=== PATIENT | female | born 1955 | race Caucasian/White ===

== ENCOUNTER 2019-06-07 08:08 | Day surgery (SDC) | payer MEDICARE, BC ==
[~2019-06-07 08:08] MED LIST: Midazolam 1 MG/ML 2 ML SDV ONE; Propofol 200 MG/20 ML SDV ONE; fentaNYL 100 MCG/2 ML SDV ONE
[2019-06-07] MEDS ORDERED: Lactated Ringers 1,000 ML IV SCH (08:45)
[2019-06-07] MEDS ORDERED: Propofol 200 MG/20 ML SDV ONE (09:28)
--- NOTE | 2019-06-07 10:59 | OR ---
DATE OF PROCEDURE: 06/07/2019 SURGEON: John Tucker MD PREOPERATIVE DIAGNOSIS: Strong family history of colon cancer, father. POSTOPERATIVE DIAGNOSIS: Three small colon polyps, strong family history of colon cancer, father. PROCEDURE: Colonoscopy to the cecum with biopsy resection of three small colon polyps, sent to the laboratory as two specimens. ANESTHESIA: IV anesthesia with monitored anesthesia care. INDICATION: This 64-year-old white female is referred for a colonoscopy because of a strong family history of colon cancer, her father had colon cancer. She has been having colonoscopies every 5 years for many years. I counseled her for the procedure, including risks and alternatives, and she gave her informed consent to proceed. DESCRIPTION OF PROCEDURE: The patient was placed in the left lateral decubitus position. IV anesthesia was administered by the Anesthesia Service. Time-out was held. A rectal exam was performed, which was unremarkable. The flexible video Olympus colonoscope was introduced through her anus, up her rectum, out her colon all the way to the cecum. En route, in the transverse colon, we saw two polyps adjacent to each other. These were removed with the biopsy forceps and sent to the laboratory as one specimen. Once the cecum was reached, the scope was slowly withdrawn, examining the mucosa throughout. No other mucosal abnormalities were noted until I reached 30 cm from the anal verge. Here, we saw a small polyp, which was removed with the biopsy forceps. The scope was brought back into the rectum, where it was retroflexed. The distal rectum appeared unremarkable. The scope was straightened and removed. She tolerated the procedure well. John Tucker MD /[id number]
== END 2019-06-07 10:55 | disposition home or self-care (01) ==
LOC: JP.SDS 08:08
PROVIDERS: ATTEND Surgery
DX: Z12.11 Encounter for screening for malignant neoplasm of colon (principal); D12.3 Benign neoplasm of transverse colon; K63.5 Polyp of colon; Z80.0 Family history of malignant neoplasm of digestive organs; Z88.5 Allergy status to narcotic agent
CPT/HCPCS: 45380; J2250; J2704; J3010; J7120; 88305

== ENCOUNTER 2024-11-19 06:27 | Day surgery (SDC) | payer MEDICARE, BC ==
[2024-11-19] MEDS ORDERED: Midazolam 1 MG/ML 2 ML SDV ONE (07:09)
[2024-11-19] MEDS ORDERED: Propofol 200 MG/20 ML SDV ONE ×4 (07:09→08:36)
[2024-11-19] MEDS ORDERED: fentaNYL 100 MCG/2 ML SDV ONE (07:09)
[2024-11-19] MEDS: Lactated Ringers 1,000 ML IV SCH (07:32)
[2024-11-19] MEDS ORDERED: Lactated Ringers 1,000 ML ONE (08:47)
== END 2024-11-19 11:10 | disposition home or self-care (01) ==
LOC: JP.SDS 06:27
PROVIDERS: ATTEND Surgery
DX: Z12.11 Encounter for screening for malignant neoplasm of colon (principal); K21.9 Gastro-esophageal reflux disease without esophagitis; K29.50 Unspecified chronic gastritis without bleeding
CPT/HCPCS: 00813; 43239; 87081; 88305; 91035; G0121; J2250; J2704; J3010; J7120

== ENCOUNTER 2024-12-12 07:38 | Day surgery (SDC) | payer MEDICARE, BC ==
[~2024-12-12 07:38] MED LIST changes: +Dexamethasone 4 MG/ML SDV ONE; +Glycopyrrolate 0.2 MG/ML 5 ML MDV ONE; -Midazolam 1 MG/ML 2 ML SDV ONE; +Neostigmine Methylsulfate 10 MG/10 ML MDV ONE; +Ondansetron 4 MG/2 ML SDV ONE; +Rocuronium 50 MG/5 ML Vial ONE; +Succinylcholine 200 MG/10 ML MDV ONE; -fentaNYL 100 MCG/2 ML SDV ONE; +fentaNYL 250 MCG/5 ML SDV ONE
[2024-12-12 08:04] LABS: HEMATOCRIT 42.8 % (34.3-46.0); HEMOGLOBIN 13.9 g/dL (11.2-15.5); MEAN CORPUSCULAR HEMOGLOBIN 30.4 pg (31.6-35.5); MEAN CORPUSCULAR HGB CONC 32.5 g/dL (31.6-35.5); MEAN CORPUSCULAR VOLUME 93.7 fL (81.4-99.0); RED BLOOD CELL COUNT 4.57 M/uL (3.77-5.24)
[2024-12-12 08:24] LABS: A/G RATIO 1.2 (1.2-2.2); ALANINE AMINOTRANSFERASE,ALT 43 U/L (12-78); ALBUMIN 4.3 g/dL (3.4-5.0); ALKALINE PHOSPHATASE 78 U/L (46-116); ANION GAP 8.2 mmol/L (5.0-14.0); ASPARTATE AMNIOTRANSFERASE,AST 26 U/L (15-37); BILIRUBIN TOTAL 0.5 mg/dL (0.2-1.0); BLOOD UREA NITROGEN,BUN 18 mg/dL (7-18); CALCIUM 9.5 mg/dL (8.5-10.1); CARBON DIOXIDE,CO2 29 mmol/L (21-32); CHLORIDE,CL 106 mmol/L (100-108); CREATININE 0.8 mg/dL (0.6-1.0); EST CRCL DRUG DOSING (CG) 69.75 mL/min; ESTIMATED GFR 79 mL/min (>60); GLUCOSE RANDOM 114 mg/dL (74-106); POTASSIUM,K 3.8 mmol/L (3.6-5.2); PROTEIN TOTAL,TP 7.9 g/dL (6.4-8.2); SODIUM,NA 143 mmol/L (140-148)
[2024-12-12] MEDS: Lactated Ringers 1,000 ML IV SCH (08:54)
[2024-12-12] MEDS: ceFAZolin 2 GM in Premix Bag 1 BAG IV ONE (10:05)
[2024-12-12] MEDS ORDERED: Ketorolac 30 MG/ML SDV ONE (10:27)
[2024-12-12] MEDS: Bupivacaine 0.25%/EPINEPHrine 1:200,000 30 ML SDV ONE (10:37)
[2024-12-12] MEDS ORDERED: Sugammadex Sodium 200 MG/2 ML VIAL IV ONE (11:05)
[2024-12-12] MEDS: traMADol 50 MG Tab PO PRN (12:36)
== END 2024-12-12 14:32 | disposition home or self-care (01) ==
LOC: JP.SDS 07:38
PROVIDERS: ATTEND Surgery
DX: K81.1 Chronic cholecystitis (principal); K82.8 Other specified diseases of gallbladder; K44.9 Diaphragmatic hernia without obstruction or gangrene; K21.9 Gastro-esophageal reflux disease without esophagitis; E78.5 Hyperlipidemia, unspecified
CPT/HCPCS: 00790; 36415; 47562; 80053; 85027; A9270; J0330; J0690; J1100; J1596; J1885; J2405; J2704; J2710; J3010; J7120; J3490